=== PATIENT | female | born 1955 | race Caucasian/White ===

== ENCOUNTER 2022-02-14 16:31 | Inpatient (IN) ==
[2022-02-14 20:57] LABS: Basophils % 0.8 % (0.0-0.8); Hematocrit 45.9 VOL% (35.7-47.0); Hemoglobin 14.4 GM/DL (12.0-16.0); Immature Granulocytes % 0.3 %; Immature Granulocytes Absolute 0.01 #; Lymphocytes # 1.2 10*3/uL (1.4-4.0); Lymphocytes % 31.1 % (21.3-54.2); Mean Corpuscular HGB Conc 31.4 GM/DL (32-36); Mean Corpuscular Volume 76.6 FL (87-102); Mean Platelet Volume 9.9 FL (9.6-12.0); Monocytes # 0.5 10*3/uL (0.11-0.8); Monocytes % 13.6 % (1.7-12.7); NRBC # 0.02 10*3/uL; Neutrophils % 54.2 % (38.7-73.9); Platelet Count 267 T/CUMM (130-400); Red Blood Count 5.99 MC/CUMM (3.8-5.5)
[2022-02-14 21:15] LABS: Albumin 3.4 G/DL (3.4-5.0); Bilirubin,Total 0.4 MG/DL (0.20-1.00); Calcium 8.9 MG/DL (8.5-10.1); Potassium 3.9 MMOL/L (3.5-5.1); Total Protein 7.2 G/DL (6.4-8.2)
[2022-02-14] MEDS ORDERED: SODIUM CHLORIDE 0.9% 1,000 ML IV STA (22:19)
[2022-02-14] MEDS ORDERED: DILTIAZEM 50 MG/10 ML VIAL IV STA (22:31)
[2022-02-14] MEDS ORDERED: ONDANSETRON 4 MG/2 ML VIAL ONE (22:51)
[2022-02-14] MEDS ORDERED: ONDANSETRON 4 MG/2 ML VIAL IV STA (22:51)
[2022-02-14] MEDS ORDERED: DILTIAZEM INJ 100 MG in SODIUM CHLORIDE 0.9% 100 ML IV SCH (23:00)
[2022-02-14] MEDS ORDERED: SIMETHICONE CHEW 80 MG TABLET PO STA (23:36)
[2022-02-14] MEDS ORDERED: ASPIRIN CHEW 81 MG TABLET PO STA (23:36)
[2022-02-15] MEDS ORDERED: ONDANSETRON 4 MG/2 ML VIAL IV PRN (00:57)
[2022-02-15] MEDS ORDERED: DOCUSATE SODIUM 100 MG CAPSULE PO PRN (00:57)
[2022-02-15] MEDS ORDERED: methylPREDNISolone SOD SUC 125 MG/2 ML VIAL IV STA (00:57)
[2022-02-15] MEDS ORDERED: ACETAMINOPHEN 325 MG TABLET PO PRN (00:57)
[2022-02-15] MEDS: ALBUTEROL/IPRATROPIUM 3 ML NEB RESP TX SCH ×4 (01:45→20:42)
[2022-02-15] MEDS: SODIUM CHLORIDE 0.9% 1,000 ML IV SCH ×2 (02:01→15:01)
[2022-02-15 03:54] LABS: Basophils % 0.3 % (0.0-0.8); Hematocrit 40.7 VOL% (35.7-47.0); Hemoglobin 12.7 GM/DL (12.0-16.0); Immature Granulocytes % 0.3 %; Immature Granulocytes Absolute 0.01 #; Lymphocytes # 0.8 10*3/uL (1.4-4.0); Lymphocytes % 25.5 % (21.3-54.2); Mean Corpuscular HGB Conc 31.2 GM/DL (32-36); Mean Corpuscular Volume 78.9 FL (87-102); Mean Platelet Volume 10.5 FL (9.6-12.0); Monocytes # 0.2 10*3/uL (0.11-0.8); Monocytes % 5.8 % (1.7-12.7); Neutrophils % 68.1 % (38.7-73.9); Platelet Count 230 T/CUMM (130-400); Red Blood Count 5.16 MC/CUMM (3.8-5.5); Red Cell Distribution Width 19.8 % (9.3-17.3); White Blood Count 2.9 T/CUMM (4-12)
[2022-02-15 04:19] LABS: Calcium 8.3 MG/DL (8.5-10.1); Osmolality,Calculated 275.8 MOS/KG (273-304)
[2022-02-15] MEDS ORDERED: METOPROLOL TARTRATE 25 MG TABLET PO ONE (05:30)
[2022-02-15] MEDS: DILTIAZEM INJ 100 MG in SODIUM CHLORIDE 0.9% 100 ML IV SCH ×3 (05:45→17:55)
[2022-02-15] MEDS ORDERED: DILTIAZEM INJ 100 MG in SODIUM CHLORIDE 0.9% 100 ML IV SCH (06:00)
[2022-02-15] MEDS ORDERED: MORPHINE 2 MG/1 ML SYRINGE IV PRN (06:12)
[2022-02-15] MEDS ORDERED: ENOXAPARIN 40 MG/0.4 ML SYRINGE SUBCUT SCH (09:00)
[2022-02-15] MEDS ORDERED: ALBUTEROL/IPRATROPIUM 3 ML NEB RESP TX PRN (09:55)
[2022-02-15] MEDS ORDERED: methylPREDNISolone SOD SUC 40 MG/1 ML VIAL IV SCH (12:00)
[2022-02-15] MEDS ORDERED: methylPREDNISolone SOD SUC 40 MG/1 ML VIAL IV ONE (14:00)
[2022-02-15] MEDS ORDERED: AZITHROMYCIN INJ 500 MG in SODIUM CHLORIDE 0.9% 250 ML IV SCH (14:00)
[2022-02-15] MEDS: PANTOPRAZOLE 40 MG TABLET PO SCH (15:01)
[2022-02-15] MEDS: INSULIN REGULAR 100 UNIT/ML SUBCUT SCH ×2 (17:51→21:51)
[2022-02-15] MEDS: BUDESONIDE 0.5 MG/2 ML NEB RESP TX SCH (20:42)
[2022-02-15] MEDS: ARFORMOTEROL 15 MCG/2 ML NEB RESP TX SCH (20:42)
[2022-02-15] MEDS: MONTELUKAST 10 MG TABLET PO SCH (21:50)
[2022-02-15] MEDS: methylPREDNISolone SOD SUC 125 MG/2 ML VIAL IV SCH (21:50)
[2022-02-15] MEDS: METOPROLOL SUCCINATE XL 50 MG TABLET PO SCH (21:51)
[2022-02-15] MEDS: RIVAROXABAN 20 MG TABLET PO SCH (21:51)
[2022-02-15] MEDS: EZETIMIBE 10 MG TABLET PO SCH (21:51)
[2022-02-15] MEDS: METOPROLOL SUCCINATE XL 25 MG TABLET PO SCH (21:51)
[2022-02-15] MEDS: DILTIAZEM CD 180 MG CAPSULE PO SCH (21:51)
[2022-02-16] MEDS: ALBUTEROL/IPRATROPIUM 3 ML NEB RESP TX SCH ×4 (01:39→19:27)
[2022-02-16] MEDS: DILTIAZEM INJ 100 MG in SODIUM CHLORIDE 0.9% 100 ML IV SCH ×2 (03:43→10:00)
[2022-02-16 05:45] LABS: Basophils % 0.3 % (0.0-0.8); Hematocrit 36.1 VOL% (35.7-47.0); Hemoglobin 11.1 GM/DL (12.0-16.0); Immature Granulocytes % 0.6 %; Immature Granulocytes Absolute 0.02 #; Lymphocytes # 0.6 10*3/uL (1.4-4.0); Lymphocytes % 15.9 % (21.3-54.2); Mean Corpuscular HGB Conc 30.7 GM/DL (32-36); Mean Platelet Volume 10.5 FL (9.6-12.0); Monocytes # 0.2 10*3/uL (0.11-0.8); Monocytes % 4.7 % (1.7-12.7); Neutrophils % 78.5 % (38.7-73.9); Platelet Count 220 T/CUMM (130-400); Red Blood Count 4.57 MC/CUMM (3.8-5.5); Red Cell Distribution Width 18.8 % (9.3-17.3); White Blood Count 3.6 T/CUMM (4-12)
[2022-02-16 06:15] LABS: Calcium 8.4 MG/DL (8.5-10.1); Potassium 3.7 MMOL/L (3.5-5.1)
[2022-02-16] MEDS: methylPREDNISolone SOD SUC 125 MG/2 ML VIAL IV SCH ×2 (06:33→12:57)
[2022-02-16] MEDS: BUDESONIDE 0.5 MG/2 ML NEB RESP TX SCH ×2 (07:20→19:27)
[2022-02-16] MEDS: ARFORMOTEROL 15 MCG/2 ML NEB RESP TX SCH ×2 (07:20→19:27)
[2022-02-16] MEDS ORDERED: INFLUENZA VIRUS VACCINE 0.5 ML SYRINGE IM ONE (09:00)
[2022-02-16] MEDS: INSULIN REGULAR 100 UNIT/ML SUBCUT SCH ×4 (10:10→21:50)
[2022-02-16] MEDS: PANTOPRAZOLE 40 MG TABLET PO SCH (10:10)
[2022-02-16] MEDS: MONTELUKAST 10 MG TABLET PO SCH ×2 (10:10→21:48)
[2022-02-16] MEDS ORDERED: traZODone 50 MG TABLET PO PRN (14:26)
[2022-02-16] MEDS: metFORMIN 500 MG TABLET PO SCH (17:02)
[2022-02-16] MEDS: EZETIMIBE 10 MG TABLET PO SCH (21:47)
[2022-02-16] MEDS: DILTIAZEM CD 180 MG CAPSULE PO SCH (21:48)
[2022-02-16] MEDS: CETIRIZINE 10 MG TABLET PO SCH (21:48)
[2022-02-16] MEDS: METOPROLOL SUCCINATE XL 25 MG TABLET PO SCH (21:48)
[2022-02-16] MEDS: FOLIC ACID 1 MG TABLET PO SCH (21:49)
[2022-02-16] MEDS: METOPROLOL SUCCINATE XL 50 MG TABLET PO SCH (21:49)
[2022-02-16] MEDS: CHOLECALCIFEROL 5,000 UNIT TABLET PO SCH (21:49)
[2022-02-16] MEDS: RIVAROXABAN 20 MG TABLET PO SCH (21:50)
[2022-02-16] MEDS: methylPREDNISolone SOD SUC 40 MG/1 ML VIAL IV SCH (21:51)
[2022-02-16] MEDS: SODIUM CHLORIDE 0.9% 1,000 ML IV SCH (22:29)
[2022-02-17] MEDS: ALBUTEROL/IPRATROPIUM 3 ML NEB RESP TX SCH ×4 (00:19→19:01)
[2022-02-17 04:37] LABS: Hemoglobin 10.8 GM/DL (12.0-16.0); Immature Granulocytes % 0.4 %; Immature Granulocytes Absolute 0.03 #; Lymphocytes # 0.9 10*3/uL (1.4-4.0); Lymphocytes % 10.8 % (21.3-54.2); Mean Corpuscular HGB Conc 30.9 GM/DL (32-36); Mean Platelet Volume 10.5 FL (9.6-12.0); Monocytes # 0.2 10*3/uL (0.11-0.8); Monocytes % 2.9 % (1.7-12.7); Neutrophils % 85.9 % (38.7-73.9); Platelet Count 221 T/CUMM (130-400); Red Blood Count 4.49 MC/CUMM (3.8-5.5); Red Cell Distribution Width 19.3 % (9.3-17.3); White Blood Count 7.9 T/CUMM (4-12)
[2022-02-17] MEDS: methylPREDNISolone SOD SUC 40 MG/1 ML VIAL IV SCH ×3 (04:56→22:09)
[2022-02-17 04:57] LABS: Calcium 8.3 MG/DL (8.5-10.1); Osmolality,Calculated 274.1 MOS/KG (273-304); Potassium 3.9 MMOL/L (3.5-5.1)
[2022-02-17] MEDS: BUDESONIDE 0.5 MG/2 ML NEB RESP TX SCH ×2 (07:31→19:01)
[2022-02-17] MEDS: ARFORMOTEROL 15 MCG/2 ML NEB RESP TX SCH ×2 (07:31→19:01)
[2022-02-17] MEDS: INSULIN REGULAR 100 UNIT/ML SUBCUT SCH ×4 (09:52→22:10)
[2022-02-17] MEDS: metFORMIN 500 MG TABLET PO SCH ×2 (09:52→17:15)
[2022-02-17] MEDS: PANTOPRAZOLE 40 MG TABLET PO SCH (09:52)
[2022-02-17] MEDS: MONTELUKAST 10 MG TABLET PO SCH ×2 (09:53→22:08)
[2022-02-17] MEDS: NON-FORMULARY MEDICATION (Fluticasone-Umeclidin-Vilanter [Trelegy Ellipta] 200-62.5-25 mcg INH SCH (09:53)
[2022-02-17 15:45] LABS: % Iron Saturation 6.9 % (18-50)
[2022-02-17 15:51] LABS: Folate 12.9 NG/ML (5.38-24.0)
[2022-02-17] MEDS: SODIUM CHLORIDE 0.9% 1,000 ML IV SCH (16:33)
[2022-02-17] MEDS: EZETIMIBE 10 MG TABLET PO SCH (22:07)
[2022-02-17] MEDS: METOPROLOL SUCCINATE XL 50 MG TABLET PO SCH (22:08)
[2022-02-17] MEDS: DILTIAZEM CD 180 MG CAPSULE PO SCH (22:08)
[2022-02-17] MEDS: CHOLECALCIFEROL 5,000 UNIT TABLET PO SCH (22:08)
[2022-02-17] MEDS: CETIRIZINE 10 MG TABLET PO SCH (22:09)
[2022-02-17] MEDS: FOLIC ACID 1 MG TABLET PO SCH (22:09)
[2022-02-17] MEDS: METOPROLOL SUCCINATE XL 25 MG TABLET PO SCH (23:09)
[2022-02-18] MEDS: ALBUTEROL/IPRATROPIUM 3 ML NEB RESP TX SCH ×4 (00:03→20:38)
[2022-02-18] MEDS: methylPREDNISolone SOD SUC 40 MG/1 ML VIAL IV SCH ×3 (05:11→21:45)
[2022-02-18] MEDS ORDERED: PROMETHAZINE 25 MG/1 ML VIAL IM ONE (07:00)
[2022-02-18] MEDS ORDERED: MEPERIDINE 50 MG/1 ML VIAL IM ONE (07:00)
[2022-02-18] MEDS ORDERED: LIDOCAINE 2% 20 ML VIAL RESP TX ONE (07:30)
[2022-02-18] MEDS ORDERED: LIDOCAINE 2% VISCOUS 100 ML BOTTLE SWISH/SPIT ONE (07:30)
[2022-02-18] MEDS ORDERED: MIDAZOLAM 2 MG/2 ML VIAL IV ONE (07:30)
[2022-02-18] MEDS ORDERED: LIDOCAINE 1% 20 ML VIAL MISC INJ ONE (07:30)
[2022-02-18] MEDS: ARFORMOTEROL 15 MCG/2 ML NEB RESP TX SCH ×2 (08:05→20:38)
[2022-02-18] MEDS: BUDESONIDE 0.5 MG/2 ML NEB RESP TX SCH ×2 (08:05→20:38)
[2022-02-18 09:01] LABS: Calcium 8.8 MG/DL (8.5-10.1); Osmolality,Calculated 279.8 MOS/KG (273-304); Potassium 4.4 MMOL/L (3.5-5.1)
[2022-02-18] MEDS: INSULIN REGULAR 100 UNIT/ML SUBCUT SCH ×4 (09:26→21:45)
[2022-02-18] MEDS: PANTOPRAZOLE 40 MG TABLET PO SCH (09:53)
[2022-02-18] MEDS: metFORMIN 500 MG TABLET PO SCH ×2 (09:53→17:32)
[2022-02-18] MEDS: MONTELUKAST 10 MG TABLET PO SCH ×2 (09:53→21:43)
[2022-02-18] MEDS: NON-FORMULARY MEDICATION (Fluticasone-Umeclidin-Vilanter [Trelegy Ellipta] 200-62.5-25 mcg INH SCH (09:56)
[2022-02-18] MEDS ORDERED: hydrALAZINE 20 MG/1 ML VIAL IV PRN (12:29)
[2022-02-18] MEDS ORDERED: BISACODYL 5 MG TABLET PO ONE (13:47)
[2022-02-18] MEDS: RIVAROXABAN 20 MG TABLET PO SCH (17:32)
[2022-02-18] MEDS ORDERED: BISACODYL 5 MG TABLET PO SCH (21:00)
[2022-02-18] MEDS: CHOLECALCIFEROL 5,000 UNIT TABLET PO SCH (21:43)
[2022-02-18] MEDS: CETIRIZINE 10 MG TABLET PO SCH (21:43)
[2022-02-18] MEDS: EZETIMIBE 10 MG TABLET PO SCH (21:43)
[2022-02-18] MEDS: FOLIC ACID 1 MG TABLET PO SCH (21:43)
[2022-02-18] MEDS: DILTIAZEM CD 240 MG CAPSULE PO SCH (21:44)
[2022-02-19] MEDS: ALBUTEROL/IPRATROPIUM 3 ML NEB RESP TX SCH ×4 (01:40→19:33)
[2022-02-19 04:51] LABS: Hematocrit 33.9 VOL% (35.7-47.0); Hemoglobin 10.5 GM/DL (12.0-16.0); Immature Granulocytes % 0.8 %; Immature Granulocytes Absolute 0.06 #; Lymphocytes # 0.8 10*3/uL (1.4-4.0); Lymphocytes % 10.4 % (21.3-54.2); Mean Corpuscular Volume 77.9 FL (87-102); Mean Platelet Volume 10.8 FL (9.6-12.0); Monocytes # 0.2 10*3/uL (0.11-0.8); Neutrophils % 85.8 % (38.7-73.9); Platelet Count 211 T/CUMM (130-400); Red Blood Count 4.35 MC/CUMM (3.8-5.5); Red Cell Distribution Width 19.9 % (9.3-17.3); White Blood Count 7.4 T/CUMM (4-12)
[2022-02-19 05:07] LABS: Calcium 8.5 MG/DL (8.5-10.1); Osmolality,Calculated 280.1 MOS/KG (273-304); Potassium 3.9 MMOL/L (3.5-5.1)
[2022-02-19] MEDS: methylPREDNISolone SOD SUC 40 MG/1 ML VIAL IV SCH (05:37)
[2022-02-19] MEDS: BUDESONIDE 0.5 MG/2 ML NEB RESP TX SCH ×2 (07:27→19:33)
[2022-02-19] MEDS: ARFORMOTEROL 15 MCG/2 ML NEB RESP TX SCH ×2 (07:37→19:33)
[2022-02-19] MEDS: metFORMIN 500 MG TABLET PO SCH ×2 (08:25→16:49)
[2022-02-19] MEDS: PANTOPRAZOLE 40 MG TABLET PO SCH (08:25)
[2022-02-19] MEDS: MONTELUKAST 10 MG TABLET PO SCH ×2 (08:25→21:02)
[2022-02-19] MEDS: INSULIN REGULAR 100 UNIT/ML SUBCUT SCH ×4 (08:26→21:07)
[2022-02-19] MEDS: NON-FORMULARY MEDICATION (Fluticasone-Umeclidin-Vilanter [Trelegy Ellipta] 200-62.5-25 mcg INH SCH (10:07)
[2022-02-19] MEDS: RIVAROXABAN 20 MG TABLET PO SCH (16:49)
[2022-02-19] MEDS: DILTIAZEM CD 240 MG CAPSULE PO SCH (21:00)
[2022-02-19] MEDS ORDERED: methylPREDNISolone SOD SUC 40 MG/1 ML VIAL IV SCH (21:00)
[2022-02-19] MEDS: FOLIC ACID 1 MG TABLET PO SCH (21:01)
[2022-02-19] MEDS: ASCORBIC ACID 500 MG TABLET PO SCH (21:01)
[2022-02-19] MEDS: CHOLECALCIFEROL 5,000 UNIT TABLET PO SCH (21:01)
[2022-02-19] MEDS: CETIRIZINE 10 MG TABLET PO SCH (21:02)
[2022-02-19] MEDS: EZETIMIBE 10 MG TABLET PO SCH (21:02)
[2022-02-20] MEDS: ALBUTEROL/IPRATROPIUM 3 ML NEB RESP TX SCH ×2 (00:13→07:06)
[2022-02-20 06:31] LABS: Basophils % 0.2 % (0.0-0.8); Hematocrit 34.1 VOL% (35.7-47.0); Hemoglobin 10.6 GM/DL (12.0-16.0); Immature Granulocytes % 1.6 %; Immature Granulocytes Absolute 0.17 #; Lymphocytes # 0.7 10*3/uL (1.4-4.0); Lymphocytes % 6.9 % (21.3-54.2); Mean Corpuscular HGB Conc 31.1 GM/DL (32-36); Mean Corpuscular Volume 77.9 FL (87-102); Mean Platelet Volume 10.9 FL (9.6-12.0); Monocytes # 0.3 10*3/uL (0.11-0.8); Monocytes % 2.8 % (1.7-12.7); NRBC # 0.02 10*3/uL; Neutrophils % 88.5 % (38.7-73.9); Platelet Count 210 T/CUMM (130-400); Red Blood Count 4.38 MC/CUMM (3.8-5.5); Red Cell Distribution Width 20.2 % (9.3-17.3); White Blood Count 10.4 T/CUMM (4-12)
[2022-02-20 06:48] LABS: Calcium 8.8 MG/DL (8.5-10.1); Osmolality,Calculated 284.7 MOS/KG (273-304); Potassium 3.7 MMOL/L (3.5-5.1)
[2022-02-20] MEDS: BUDESONIDE 0.5 MG/2 ML NEB RESP TX SCH (07:06)
[2022-02-20] MEDS: ARFORMOTEROL 15 MCG/2 ML NEB RESP TX SCH (07:06)
[2022-02-20] MEDS: ASCORBIC ACID 500 MG TABLET PO SCH (08:59)
[2022-02-20] MEDS: INSULIN REGULAR 100 UNIT/ML SUBCUT SCH ×2 (08:59→12:55)
[2022-02-20] MEDS: MONTELUKAST 10 MG TABLET PO SCH (08:59)
[2022-02-20] MEDS: metFORMIN 500 MG TABLET PO SCH (08:59)
[2022-02-20] MEDS: PANTOPRAZOLE 40 MG TABLET PO SCH (08:59)
[2022-02-20] MEDS ORDERED: predniSONE 20 MG TABLET PO SCH (09:00)
[2022-02-20] MEDS: NON-FORMULARY MEDICATION (Fluticasone-Umeclidin-Vilanter [Trelegy Ellipta] 200-62.5-25 mcg INH SCH (09:03)
[2022-02-20 13:18] VITALS: BP 123/70
[2022-02-20] MEDS ORDERED: METHOTREXATE 2.5 MG TABLET PO SCH (14:26)
== END 2022-02-20 14:50 | disposition home or self-care (01) | DRG 202 ==
LOC: N.ED 16:31 → N.TELES 02-15 00:57 → SUATTDRO 02-15 00:57 → N.TELES 02-15 02:16
PROVIDERS: ADMIT Hospitalist; ATTEND Hospitalist

== ENCOUNTER 2022-02-28 20:11 | Inpatient (IN) ==
[2022-02-28] MEDS ORDERED: DILTIAZEM 50 MG/10 ML VIAL IV STA (20:27)
[2022-02-28] MEDS ORDERED: ASPIRIN 325 MG TABLET PO STA (20:27)
[2022-02-28 20:44] LABS: Basophils % 0.1 % (0.0-0.8); Eosinophils % 0.1 % (0.00-10.9); Immature Granulocytes % 0.5 %; Immature Granulocytes Absolute 0.05 #; Lymphocytes # 1.2 10*3/uL (1.4-4.0); Lymphocytes % 12.2 % (21.3-54.2); Mean Corpuscular HGB Conc 31.7 GM/DL (32-36); Mean Corpuscular Volume 76.6 FL (87-102); Mean Platelet Volume 10.3 FL (9.6-12.0); Monocytes # 0.4 10*3/uL (0.11-0.8); Monocytes % 3.7 % (1.7-12.7); Neutrophils % 83.4 % (38.7-73.9); Platelet Count 253 T/CUMM (130-400); Red Blood Count 5.35 MC/CUMM (3.8-5.5); White Blood Count 9.9 T/CUMM (4-12)
[2022-02-28 20:55] LABS: PT Patient Result 11.5 SECS (10.1-12.1)
[2022-02-28 21:05] LABS: Albumin 2.9 G/DL (3.4-5.0); Bilirubin,Total 0.7 MG/DL (0.20-1.00); Calcium 8.7 MG/DL (8.5-10.1); Total Protein 5.9 G/DL (6.4-8.2)
[2022-02-28] MEDS: DILTIAZEM INJ 100 MG in SODIUM CHLORIDE 0.9% 100 ML IV SCH (21:13)
[2022-02-28] MEDS ORDERED: hydrALAZINE 20 MG/1 ML VIAL IV PRN (23:44)
[2022-02-28] MEDS ORDERED: GLUCAGON 1 MG VIAL IM PRN (23:44)
[2022-02-28] MEDS ORDERED: guaiFENesin/DM ER 600-30 MG TABLET PO PRN (23:44)
[2022-02-28] MEDS ORDERED: diphenhydrAMINE CAP 25 MG CAPSULE PO PRN (23:44)
[2022-02-28] MEDS ORDERED: ZALEPLON 5 MG CAPSULE PO PRN (23:44)
[2022-02-28] MEDS ORDERED: NICOTINE 21 MG/24 HR PATCH TRANSDERM PRN (23:44)
[2022-02-28] MEDS ORDERED: ONDANSETRON 4 MG/2 ML VIAL IV PRN (23:44)
[2022-02-28] MEDS ORDERED: ACETAMINOPHEN 325 MG TABLET PO PRN (23:44)
[2022-02-28] MEDS ORDERED: DEXTROSE 10% 250 ML BAG IV PRN (23:57)
[2022-03-01] MEDS ORDERED: RIVAROXABAN 20 MG TABLET PO ONE (01:53)
[2022-03-01 05:36] LABS: Basophils % 0.2 % (0.0-0.8); Eosinophils % 0.3 % (0.00-10.9); Hemoglobin 11.7 GM/DL (12.0-16.0); Immature Granulocytes % 0.5 %; Immature Granulocytes Absolute 0.03 #; Lymphocytes # 1.3 10*3/uL (1.4-4.0); Lymphocytes % 21.8 % (21.3-54.2); Mean Corpuscular HGB Conc 30.8 GM/DL (32-36); Mean Corpuscular Volume 79.2 FL (87-102); Monocytes # 0.3 10*3/uL (0.11-0.8); Monocytes % 5.5 % (1.7-12.7); Neutrophils % 71.7 % (38.7-73.9); Platelet Count 209 T/CUMM (130-400); Red Cell Distribution Width 21.2 % (9.3-17.3); White Blood Count 6.1 T/CUMM (4-12)
[2022-03-01 05:52] LABS: Calcium 8.5 MG/DL (8.5-10.1); Potassium 3.8 MMOL/L (3.5-5.1)
[2022-03-01] MEDS ORDERED: ALBUTEROL/IPRATROPIUM 3 ML NEB RESP TX PRN (06:19)
[2022-03-01] MEDS: ALBUTEROL 2.5 MG/3 ML NEB RESP TX SCH ×5 (07:05→19:35)
[2022-03-01] MEDS: INSULIN LISPRO 100 UNIT/ML SUBCUT SCH ×4 (08:51→22:20)
[2022-03-01] MEDS: PANTOPRAZOLE 40 MG TABLET PO SCH (09:36)
[2022-03-01] MEDS: METOPROLOL SUCCINATE XL 25 MG TABLET PO SCH (09:37)
[2022-03-01] MEDS: POTASSIUM CHLORIDE 20 MEQ TABLET PO SCH (11:00)
[2022-03-01] MEDS: ASCORBIC ACID 500 MG TABLET PO SCH ×2 (11:00→22:12)
[2022-03-01] MEDS: DILTIAZEM CD 240 MG CAPSULE PO SCH (12:39)
[2022-03-01] MEDS ORDERED: DILTIAZEM CD 240 MG CAPSULE PO SCH (21:00)
[2022-03-01] MEDS: RIVAROXABAN 20 MG TABLET PO SCH (22:11)
[2022-03-01] MEDS: CETIRIZINE 10 MG TABLET PO SCH (22:12)
[2022-03-01] MEDS: EZETIMIBE 10 MG TABLET PO SCH (22:12)
[2022-03-02] MEDS: ALBUTEROL 2.5 MG/3 ML NEB RESP TX SCH ×6 (00:04→21:08)
[2022-03-02 06:11] LABS: Calcium 8.7 MG/DL (8.5-10.1); Osmolality,Calculated 276.7 MOS/KG (273-304); Potassium 4.1 MMOL/L (3.5-5.1)
[2022-03-02] MEDS: INSULIN LISPRO 100 UNIT/ML SUBCUT SCH ×4 (07:59→22:34)
[2022-03-02] MEDS: METOPROLOL SUCCINATE XL 25 MG TABLET PO SCH (08:34)
[2022-03-02] MEDS: DILTIAZEM CD 240 MG CAPSULE PO SCH (08:34)
[2022-03-02] MEDS: POTASSIUM CHLORIDE 20 MEQ TABLET PO SCH (08:34)
[2022-03-02] MEDS: ASCORBIC ACID 500 MG TABLET PO SCH ×2 (08:35→22:36)
[2022-03-02] MEDS: PANTOPRAZOLE 40 MG TABLET PO SCH ×2 (08:35→22:37)
[2022-03-02] MEDS: DOCUSATE SODIUM 100 MG CAPSULE PO SCH (10:29)
[2022-03-02] MEDS: DILTIAZEM INJ 100 MG in SODIUM CHLORIDE 0.9% 100 ML IV SCH ×2 (11:53→22:34)
[2022-03-02] MEDS ORDERED: FUROSEMIDE 40 MG/4 ML VIAL IV ONE (17:38)
[2022-03-02] MEDS: EZETIMIBE 10 MG TABLET PO SCH (22:36)
[2022-03-02] MEDS: RIVAROXABAN 20 MG TABLET PO SCH (22:36)
[2022-03-02] MEDS: CETIRIZINE 10 MG TABLET PO SCH (22:37)
[2022-03-02] MEDS ORDERED: CYCLOBENZAPRINE 10 MG TABLET PO PRN (22:45)
[2022-03-03] MEDS: ALBUTEROL 2.5 MG/3 ML NEB RESP TX SCH ×7 (00:04→23:44)
[2022-03-03 06:34] LABS: Calcium 8.4 MG/DL (8.5-10.1); Osmolality,Calculated 276.5 MOS/KG (273-304); Potassium 3.5 MMOL/L (3.5-5.1)
[2022-03-03] MEDS ORDERED: DEXTROSE 50% 25 GM/50 ML VIAL IV PRN (11:18)
[2022-03-03] MEDS ORDERED: GLUCAGON 1 MG VIAL IM PRN (11:18)
[2022-03-03] MEDS ORDERED: LIDOCAINE 2% 5 ML VIAL ONE (11:20)
[2022-03-03] MEDS ORDERED: propofoL 200 MG/20 ML VIAL IV ONE (11:20)
[2022-03-03] MEDS ORDERED: ETOMIDATE 40 MG/20 ML VIAL IV ONE (11:21)
[2022-03-03] MEDS: INSULIN LISPRO 100 UNIT/ML SUBCUT SCH ×4 (11:58→21:51)
[2022-03-03] MEDS: DILTIAZEM CD 240 MG CAPSULE PO SCH (12:00)
[2022-03-03] MEDS: DOCUSATE SODIUM 100 MG CAPSULE PO SCH (12:00)
[2022-03-03] MEDS: POTASSIUM CHLORIDE 20 MEQ TABLET PO SCH (12:01)
[2022-03-03] MEDS: PANTOPRAZOLE 40 MG TABLET PO SCH ×2 (12:01→21:51)
[2022-03-03] MEDS: ASCORBIC ACID 500 MG TABLET PO SCH ×2 (12:01→21:51)
[2022-03-03] MEDS: METOPROLOL SUCCINATE XL 25 MG TABLET PO SCH (12:02)
[2022-03-03] MEDS: DILTIAZEM INJ 100 MG in SODIUM CHLORIDE 0.9% 100 ML IV SCH (21:49)
[2022-03-03] MEDS: CETIRIZINE 10 MG TABLET PO SCH (21:51)
[2022-03-03] MEDS: EZETIMIBE 10 MG TABLET PO SCH (21:51)
[2022-03-03] MEDS: RIVAROXABAN 20 MG TABLET PO SCH (21:51)
[2022-03-04] MEDS: ALBUTEROL 2.5 MG/3 ML NEB RESP TX SCH ×3 (03:04→10:34)
[2022-03-04 05:06] LABS: Basophils % 0.3 % (0.0-0.8); Eosinophils % 0.5 % (0.00-10.9); Hematocrit 35.5 VOL% (35.7-47.0); Hemoglobin 10.9 GM/DL (12.0-16.0); Immature Granulocytes % 0.3 %; Immature Granulocytes Absolute 0.02 #; Lymphocytes # 1.6 10*3/uL (1.4-4.0); Lymphocytes % 20.5 % (21.3-54.2); Mean Corpuscular HGB Conc 30.7 GM/DL (32-36); Mean Corpuscular Volume 80.5 FL (87-102); Mean Platelet Volume 10.7 FL (9.6-12.0); Monocytes # 0.5 10*3/uL (0.11-0.8); Monocytes % 6.5 % (1.7-12.7); Neutrophils % 71.9 % (38.7-73.9); Platelet Count 139 T/CUMM (130-400); Red Blood Count 4.41 MC/CUMM (3.8-5.5); Red Cell Distribution Width 20.9 % (9.3-17.3); White Blood Count 7.7 T/CUMM (4-12)
[2022-03-04 05:26] LABS: Calcium 8.4 MG/DL (8.5-10.1); Osmolality,Calculated 275.8 MOS/KG (273-304); Potassium 3.9 MMOL/L (3.5-5.1)
[2022-03-04] MEDS: INSULIN LISPRO 100 UNIT/ML SUBCUT SCH ×2 (08:34→13:00)
[2022-03-04] MEDS: DILTIAZEM CD 240 MG CAPSULE PO SCH (08:34)
[2022-03-04] MEDS: DOCUSATE SODIUM 100 MG CAPSULE PO SCH (08:35)
[2022-03-04] MEDS: PANTOPRAZOLE 40 MG TABLET PO SCH (08:37)
[2022-03-04] MEDS: POTASSIUM CHLORIDE 20 MEQ TABLET PO SCH (08:37)
[2022-03-04] MEDS: METOPROLOL SUCCINATE XL 25 MG TABLET PO SCH (08:37)
[2022-03-04] MEDS: ASCORBIC ACID 500 MG TABLET PO SCH (08:37)
[2022-03-04 09:51] VITALS: BP 158/68
== END 2022-03-04 13:00 | disposition home or self-care (01) | DRG 309 ==
LOC: EDUNIT# → EDBD → N.ED 20:11 → N.EDINP 23:44 → N.TELES 03-01 00:08
PROVIDERS: ADMIT Internal Medicine; ATTEND Internal Medicine